=== PATIENT | female | born 1965 | race Caucasian/White ===

== ENCOUNTER → 2022-07-15 11:32 | Outpatient (BNVA) | payer OTHER, SELFPAY | PROVIDERS: Family Provider Registered Nurse; PCP Nurse Practitioner Family; Visit Provider Registered Nurse | DX: L57.0 Actinic keratosis (principal) | CPT/HCPCS: 88304 ==

== ENCOUNTER → 2024-04-04 10:32 | Outpatient (BNVA) | payer OTHER, SELFPAY | PROVIDERS: Family Provider Registered Nurse; PCP Nurse Practitioner Family; Visit Provider Podiatrist Foot & Ankle Surgery | DX: M79.671 Pain in right foot (principal); M21.611 Bunion of right foot; M76.71 Peroneal tendinitis, right leg; M76.61 Achilles tendinitis, right leg | CPT/HCPCS: 73630 ==